=== PATIENT | male | born 1930 | race Asian ===

== ENCOUNTER 2019-04-23 12:42 | Inpatient (IN) | payer OTHER, MEDICARE ==
[~2019-04-23] VITALS: Ht 172.7 cm; Wt 67.0 kg
[2019-04-23 12:58] VITALS: Ht 172.7 cm; Wt 67.0 kg
[2019-04-23 13:19] LABS: BASOPHIL % 0.6 % (0-2); PLATELET COUNT 364 x10^3mcL (130-400)
[2019-04-23 13:28] LABS: CARBON DIOXIDE 27.6 mmol/L (21-32); CHLORIDE SERUM 105 mmol/L (98-107); CREATININE SERUM 1.5 mg/dL (0.7-1.3); GLUCOSE SERUM 163 mg/dL (74-106); POTASSIUM SERUM 4.8 mmol/L (3.5-5.1); SODIUM SERUM 140 mmol/L (136-145)
[2019-04-23 13:29] LABS: RED CELL DISTRIBUTION WIDTH 15.9 % (11.5-14.5)
[2019-04-23 13:33] LABS: ALKALINE PHOSPHATASE 99 U/L (46-116); ALT/SGPT 17 U/L (16-63); AST/SGOT 22 U/L (15-37); BILIRUBIN TOTAL 0.5 mg/dL (0.20-1.00); TOTAL PROTEIN, SERUM 6.8 g/dL (6.4-8.2)
[2019-04-23] MEDS ORDERED: LOV40I (15:49)
[2019-04-23] MEDS ORDERED: COLACE100 MG PO (15:49)
[2019-04-23 15:50] LABS: UA SPECIFIC GRAVITY 1.015 (1.005-1.035); microscopic required? YES; urine erythrocyte TRACE (NEGATIVE)
[2019-04-23] MEDS ORDERED: COZAAR100 MG PO (15:50)
[2019-04-23] MEDS ORDERED: AMLODIPINE BES2.5 M1 PO (15:50)
[2019-04-23] MEDS ORDERED: SINEMET 25-1001 TAB PO (15:50)
[2019-04-23] MEDS ORDERED: FLOMAX0.4 MG PO (15:51)
[2019-04-23 15:54] LABS: FREE T4 1.37 ng/dL (0.76-1.46); FREE THYROXINE INDEX 3.6 ug/dL (1.4-4.5); T4(THYROXINE) 9.2 ug/dL (4.7-13.3)
[2019-04-23 15:55] LABS: T3 TOTAL 1.09 ng/mL
[2019-04-23 15:59] LABS: AMPHETAMINE QUAL UR NONE DETECTED (See below)
[2019-04-23 16:07] LABS: MAGNESIUM 2.4 mg/dL (1.8-2.4); PHOSPHOROUS 3.6 mg/dL (2.5-4.9)
[2019-04-23 17:13] VITALS: BP 122/55
[2019-04-23 20:46] VITALS: BP 136/61
[2019-04-24 05:50] VITALS: BP 128/66
[2019-04-24 06:24] LABS: BASOPHIL % 1.1 % (0-2); PLATELET COUNT 319 x10^3mcL (130-400)
[2019-04-24 06:28] LABS: RED CELL DISTRIBUTION WIDTH 16.3 % (11.5-14.5)
[2019-04-24 06:36] LABS: CALCIUM 8.2 mg/dL (8.5-10.1); CARBON DIOXIDE 27.3 mmol/L (21-32); CHLORIDE SERUM 107 mmol/L (98-107); CREATININE SERUM 1.2 mg/dL (0.7-1.3); GLUCOSE SERUM 80 mg/dL (74-106); MAGNESIUM 2.7 mg/dL (1.8-2.4); PHOSPHOROUS 3.6 mg/dL (2.5-4.9); POTASSIUM SERUM 4.4 mmol/L (3.5-5.1); SODIUM SERUM 142 mmol/L (136-145)
[2019-04-24 07:54] VITALS: BP 126/67
[2019-04-24 11:47] VITALS: BP 114/44
[2019-04-24 16:36] VITALS: BP 139/71
[2019-04-24 21:05] VITALS: BP 124/60
[2019-04-25 03:40] VITALS: BP 116/65
[2019-04-25 07:20] LABS: CALCIUM 7.7 mg/dL (8.5-10.1); CHLORIDE SERUM 108 mmol/L (98-107); CREATININE SERUM 1.2 mg/dL (0.7-1.3); GLUCOSE SERUM 81 mg/dL (74-106); MAGNESIUM 2.2 mg/dL (1.8-2.4); PHOSPHOROUS 3.9 mg/dL (2.5-4.9); POTASSIUM SERUM 4.6 mmol/L (3.5-5.1); SODIUM SERUM 143 mmol/L (136-145)
[2019-04-25 07:25] LABS: BASOPHIL % 0.7 % (0-2); PLATELET COUNT 283 x10^3mcL (130-400)
[2019-04-25 07:33] LABS: RED CELL DISTRIBUTION WIDTH 15.9 % (11.5-14.5)
[2019-04-25 09:49] VITALS: BP 124/71
[2019-04-25] MEDS ORDERED: BACTRIM DS1 TAB PO (11:33)
[2019-04-25 12:45] VITALS: BP 124/68
[2019-04-25 13:30] VITALS: BP 158/66
[2019-04-25 15:52] VITALS: BP 145/64
== END 2019-04-25 19:05 | disposition home or self-care (01) | DRG 48 ==
LOC: ED 12:42 → DU 15:13
PROVIDERS: Emergency Medicine; ADMIT Internal Medicine
DX: G90.8 Other disorders of autonomic nervous system (principal); N17.0 Acute kidney failure with tubular necrosis; E86.0 Dehydration; E44.0 Moderate protein-calorie malnutrition; I10 Essential (primary) hypertension; D53.9 Nutritional anemia, unspecified; G20 Parkinson's disease; N40.0 Benign prostatic hyperplasia without lower urinary tract symptoms; M19.90 Unspecified osteoarthritis, unspecified site; E83.51 Hypocalcemia; N39.0 Urinary tract infection, site not specified; Z96.642 Presence of left artificial hip joint; Z99.3 Dependence on wheelchair; Z68.22 Body mass index [BMI] 22.0-22.9, adult; Z98.49 Cataract extraction status, unspecified eye; Z82.49 Family history of ischemic heart disease and other diseases of the circulatory system; Z79.899 Other long term (current) drug therapy
CPT/HCPCS: 84439; 97112-GP; 97116-GP; 97530-GP; G0378; J7030; Q0092